=== PATIENT | male | born 2000 | race Caucasian/White ===

== ENCOUNTER → 2023-04-30 08:21 | Outpatient (BNVA) | payer OTHER, SELFPAY | PROVIDERS: Family Provider Electrodiagnostic Medicine; Visit Provider Nurse Practitioner Family | DX: Z02.1 Encounter for pre-employment examination (principal) | CPT/HCPCS: 80307 ==

== ENCOUNTER → 2023-10-25 09:33 | Outpatient (BNVA) | payer BC, SELFPAY | PROVIDERS: Family Provider Electrodiagnostic Medicine; PCP Nurse Practitioner Family; Visit Provider Nurse Practitioner Family | DX: Z72.51 High risk heterosexual behavior (principal); J02.9 Acute pharyngitis, unspecified | CPT/HCPCS: 87491; 87591 ==